=== PATIENT | male | born 1995 | race Caucasian/White ===

== ENCOUNTER 2019-11-29 10:16 | Outpatient (REF) | payer OTHER, MEDICAID, SELFPAY ==
[2019-11-29 11:52] LABS: Anion Gap 12 (12-20); Blood Urea Nitrogen 13 mg/dL (9-16); Carbon Dioxide 27 mmol/L (22-29); Chloride 105 mmol/L (96-108); Cholesterol 188 mg/dL; Estimated Glomerular Filt Rate > 60; Glucose Fasting 75 mg/dL (60-99); HDL Cholesterol 28 mg/dL; LDL Cholesterol Calculated 123 mg/dl; Potassium 4.2 mmol/l (3.3-5.1); Sodium 140 mmol/L (135-145); Triglycerides 186 mg/dL
[2019-11-29 12:16] LABS: TSH reflex Free T4 1.33 mIU/mL (0.32-4.0)
== END 2019-11-29 10:17 | disposition home or self-care (01) ==
LOC: HO.HMGCLDS 10:16
PROVIDERS: PCP Nurse Practitioner Family; Visit Provider Nurse Practitioner Family
DX: Z00.00 Encounter for general adult medical examination without abnormal findings (principal)
CPT/HCPCS: 80048; 80061; 84443

== ENCOUNTER 2020-02-26 13:57 | Outpatient (REF) | payer OTHER, MEDICAID, SELFPAY ==
--- NOTE | 2020-02-26 14:37 | MHC.AU.P13 ---
Adult Audiological Evaluation Date of Visit: 02/26/20 Reason for Appointment: Audiological evaluation per protocol of his residential program. His caregiver denies any concerns for his hearing and denies any changes to his medical history. Does patient feel they have a hearing loss?: No Has hearing been tested previously?: Yes Previous Hearing Test Results: [facility] [place]- could not condition to hearing test with tonal stimuli. Normal responses to speech stimuli. Normal OAEs and tympanometry bilaterally. Medical History: Medical History: Developmental Disorder/Delay Medical History: Autism Spectrum Disorder Otoscopy: Right Ear: Unremarkable Left Ear: Unremarkable Tympanometry: Right Ear: Hypercompliant Middle Ear System (Type Ad) Left Ear: Normal Middle Ear System (Type A) Otoacoustic Emissions Right Ear Results: Did not test due to equipment malfunction. Analysis: Not performed at today's visit Left Ear Results: Did not test due to equipment malfunction. Analysis: Not performed at today's visit Hearing Evaluation: Transducer(s) Used: Insert Earphones Method: Visual Reinforcement Audiometry (VRA) Stimuli Used: Pure Tones Right Ear: Description of Hearing: Normal hearing from 250-8000 Hz. Left Ear: Description of Hearing: Normal hearing from 250-8000 Hz. Speech Recognition Threshold (SRT): Method Used: Monitored Live Voice Stimuli Used: Spondee Words Right Ear: 15 dBHL Left Ear: 10 dBHL Comparison: Compared to the most recent evaluation: Hearing is stable. Recommendations: Recommendations: Audiological re-evaluation in one year. Diagnosis: Primary Diagnosis: H93.293 Abnormal Auditory Perception Services Performed: Services Performed: Visual Reinforcement Audiometry (CPT 64915) Speech Audiometry Threshold (SRT/SAT) (CPT 17146) Tympanometry (CPT 17311) Signature: Provider: Marie Andres, CCC-A
== END 2020-02-26 13:58 | disposition home or self-care (01) ==
LOC: HO.SH 13:57
PROVIDERS: Visit Provider Nurse Practitioner Family
DX: H93.293 Other abnormal auditory perceptions, bilateral (principal)
CPT/HCPCS: 92555; 92567; 92579

== ENCOUNTER 2021-02-03 09:04 | Outpatient (REF) | payer OTHER, MEDICAID, SELFPAY ==
[2021-02-03 12:15] LABS: Appearance Urine CLEAR; Color Urine YELLOW; Glucose Urine UA NEG (NEG); Leukocyte Esterase Urine NEG (NEG); Nitrite Urine NEG (NEG); Urine Blood NEG (NEG); Urine Ketones NEG (NEG); Urine Protein NEG (NEG-TRACE)
[2021-02-03 12:32] LABS: Alanine Aminotransferase 22 U/L (0-40); Albumin Level 4.3 g/dL (3.5-5.0); Alkaline Phosphatase 48 U/L (39-117); Anion Gap 11 (12-20); Aspartate Amino Transferase 17 U/L (5-37); Bilirubin Total 0.3 mg/dL (0.0-1.0); Blood Urea Nitrogen 9 mg/dL (9-16); Carbon Dioxide 25 mmol/L (22-29); Chloride 105 mmol/L (96-108); Cholesterol 163 mg/dL; Estimated Glomerular Filt Rate > 60; Glucose Fasting 83 mg/dL (60-99); HDL Cholesterol 27 mg/dL; LDL Cholesterol Calculated 106 mg/dl; Potassium 4.3 mmol/L (3.3-5.1); Sodium 137 mmol/L (135-145); TSH reflex Free T4 1.43 uIU/mL (0.32-4.0); Total Protein 6.9 g/dL (6.5-8.0); Triglycerides 151 mg/dL
== END 2021-02-03 09:05 | disposition home or self-care (01) ==
LOC: HO.HMGCLDS 09:04
PROVIDERS: PCP Nurse Practitioner Family; Visit Provider Nurse Practitioner Family
DX: Z00.00 Encounter for general adult medical examination without abnormal findings (principal)
CPT/HCPCS: 36415; 80053; 80061; 81003; 84443

== ENCOUNTER 2021-02-26 09:40 | Outpatient (REF) | payer OTHER, MEDICAID, SELFPAY ==
--- NOTE | 2021-02-26 11:15 | MHC.AU.AEV ---
Adult Audiological Evaluation Date of Visit: 02/26/21 Reason for Appointment: Patient arrives for annual audiological evaluation, per guidelines of his residential program. No hearing concerns have been suspected since last year's evaluation. Has hearing been tested previously?: Yes Previous Hearing Test Results: At this clinic on 02/26/2020- Normal hearing bilaterally. Type Ad tympanogram in the right ear and Type A in the left ear. Ear History: Ear Deformity: None Reported Recent Ear Drainage: None Reported Recent Ear Pain: None Reported Medical History: Medical History: Developmental Disorder/Delay, Autism Spectrum Disorder Otoscopy: Right Ear: Unremarkable Left Ear: Unremarkable Tympanometry: Tympanometry performed due to: To assess integrity of the middle ear system Right Ear: Hypercompliant Middle Ear System (Type Ad) Left Ear: Normal Middle Ear System (Type A) Otoacoustic Emissions Frequency Range Used: 1.6-8 kHz Right Ear Results: Present Emissions Analysis: Present emissions suggest normal cochlear function Rules out peripheral hearing loss greater than a mild degree Left Ear Results: Present Emissions Analysis: Present emissions suggest normal cochlear function Rules out peripheral hearing loss greater than a mild degree Hearing Evaluation: Transducer(s) Used: Insert Earphones Method: Visual Reinforcement Audiometry (VRA) Stimuli Used: Right Ear: Description of Hearing: Normal threshold at 1000 Hz. Patient lost interest in the task for further tonal testing. Left Ear: Description of Hearing: Normal threshold at 1000 Hz. Patient lost interest in the task for further tonal testing. Speech Recognition Threshold (SRT): Method Used: Monitored Live Voice Stimuli Used: Spondee Words Right Ear: 10 dBHL Left Ear: 10 dBHL Word Discrimination: Method: Recorded Lists Word Lists Used:: W-22 Right Ear: 100% at 50 dBHL Left Ear: 100% at 50 dBHL Comparison: Compared to the most recent evaluation: Hearing is stable. Interpretation of Results: No major concerns for patient's hearing at this time. Recommendations: Audiological re-evaluation in one year. Diagnosis: Primary Diagnosis: H93.293 Abnormal Auditory Perception Signature: Provider: Marie Holman, JALEN-A
== END 2021-02-26 09:41 | disposition home or self-care (01) ==
LOC: HO.SH 09:40
PROVIDERS: Visit Provider Nurse Practitioner Family
DX: H93.293 Other abnormal auditory perceptions, bilateral (principal)
CPT/HCPCS: 92567; 92579; 92587

== ENCOUNTER 2022-02-09 09:19 | Outpatient (REF) | payer OTHER, MEDICAID, SELFPAY ==
[2022-02-09 11:30] LABS: MANUAL DIFF FLAG NO
[2022-02-09 11:37] LABS: Basophils Absolute Auto 0.1 X10*3/uL (0.0-0.2); Basophils Percent Auto 0.9 % (0-2); Eosinophils Absolute Auto 0.1 X10*3/uL (0.0-0.4); Eosinophils Percent Auto 1.2 % (0-4); Hematocrit 41.7 % (42.0-52.0); Hemoglobin 14.1 g/dl (14.0-18.0); Imm Gran Abs Auto 0.04 X10*3/uL (0.00-0.03); Imm Gran Pct Auto 0.7 % (0.0-0.4); Lymphocytes Absolute Auto 1.7 X10*3/uL (1.2-4.9); Mean Corpuscular HGB Conc 33.8 g/dl (31.0-36.0); Mean Corpuscular Hemoglobin 29.7 pg (27.0-33.0); Mean Corpuscular Volume 87.8 fL (80.0-98.0); Mean Platelet Volume 10.5 fL (9.4-12.4); Monocytes Absolute Auto 0.6 X10*3/uL (0.1-1.2); Monocytes Percent Auto 11.1 % (2-11); Neutrophils Absolute Auto 3.2 x10*3/uL (2.0-8.3); Neutrophils Percent Auto 56.1 % (45-73); Platelet Count 197 X10*3/uL (160-400); Red Blood Count 4.75 X10*6/uL (4.60-5.80); Red Cell Distribution Width 11.8 % (11.0-16.0); White Blood Count 5.7 X10*3/uL (4.8-10.8)
[2022-02-09 11:49] LABS: Appearance Urine Clear; Color Urine Yellow; Glucose Urine UA Negative (Negative); Leukocyte Esterase Urine Negative (Negative); Nitrite Urine Negative (Negative); PH 5.5 (5.0-9.0); Urine Blood Negative (Negative); Urine Ketones Negative (Negative); Urine Protein Negative (Neg-Trace)
[2022-02-09 12:32] LABS: Alanine Aminotransferase 12 U/L (0-40); Albumin Level 4.3 g/dL (3.5-5.0); Alkaline Phosphatase 50 U/L (39-117); Anion Gap 13 (12-20); Aspartate Amino Transferase 13 U/L (5-37); Bilirubin Total 0.7 mg/dL (0.0-1.0); Blood Urea Nitrogen 9 mg/dL (9-16); Calcium 9.1 mg/dL (8.4-10.2); Carbon Dioxide 25 mmol/L (22-29); Chloride 108 mmol/L (96-108); Cholesterol 167 mg/dL; Estimated Glomerular Filt Rate > 60; Glucose Fasting 79 mg/dL (60-99); HDL Cholesterol 28 mg/dL; LDL Cholesterol Calculated 97 mg/dl; Potassium 4.5 mmol/L (3.3-5.1); Sodium 141 mmol/L (135-145); TSH reflex Free T4 1.75 uIU/mL (0.32-4.0); Total Protein 6.9 g/dL (6.5-8.0); Triglycerides 212 mg/dL
== END 2022-02-09 09:20 | disposition home or self-care (01) ==
LOC: HO.HMGCLDS 09:19
PROVIDERS: PCP Nurse Practitioner Family; Visit Provider Nurse Practitioner Family
DX: Z00.00 Encounter for general adult medical examination without abnormal findings (principal)
CPT/HCPCS: 36415; 80053; 80061; 81003; 84443; 85025

== ENCOUNTER 2022-03-24 10:00 | Outpatient (REF) | payer OTHER, MEDICAID, SELFPAY | END 2022-03-24 10:01 | disposition home or self-care (01) | LOC: HO.SH 10:00 | PROVIDERS: Visit Provider Nurse Practitioner Family | DX: Z01.118 Encounter for examination of ears and hearing with other abnormal findings (principal); H93.293 Other abnormal auditory perceptions, bilateral; F80.9 Developmental disorder of speech and language, unspecified | CPT/HCPCS: 92557; 92567 ==

== ENCOUNTER 2023-01-26 10:38 | Outpatient (AMB) | payer OTHER, MEDICAID, SELFPAY ==
--- NOTE | 2023-01-26 10:40 | A.OFFPC_ITS ---
Vital Signs 01/26/23 10:43 Height 5 ft 10 in Weight 234 lb BMI 33.6 BP 108/70 Blood Pressure Location Rt brachial Position Sitting Pulse 72 Pulse Source Pulse Oximeter Pulse Oximetry (%) 98 Oxygen Delivery Method Room Air Intake Visit Reasons: annual PE [employer]: Present Accompanied by: Unknown Allergies quetiapine [Seroquel] Allergy (Unknown, Verified 01/26/23 10:44) rash Sulfa (Sulfonamide Antibiotics) Allergy (Unknown, Verified 01/26/23 10:44) Unknown Benadryl Allergy (Unknown, Uncoded 01/26/23 10:44) unknown Tobacco use date assessed: 07/27/22 Dental Screening Dental Screen Date: 01/26/23 Did you have a dental visit in the last 12 months?: Yes Did you have a dental problem in the last 6 months where you did not have access to dental care?: No Was dental information given to patient?: Patient has dentist HPI annual PE HPI Details Pt is here for a PE. Will order labs. Pt has autism, is with a caregiver today. PFSH Medical History Obesity Poor nutrition Autism Surgical History H/O tooth extraction Family History Father No problems noted. Mother Migraine Social History Housing: Assisted Living Facility Alcohol intake: never Patient Tobacco Use Status: Never used Tobacco e-Cigarette/Vaping Use: Never Used Second Hand Smoke Exposure: No Current occupational status: disabled Cognitive needs: Yes Hearing needs: No Vision needs: No Questionnaire PHQ-9 Over the last 2 weeks, how often have you been bothered by any of the following problems? 1. Little interest or pleasure in doing things: not at all 2. Feeling down, depressed, or hopeless: not at all 3. Trouble falling or staying asleep, or sleeping too much: not at all 4. Feeling tired or having little energy: not at all 5. Poor appetite or overeating: not at all 6. Feeling bad about yourself - or that you are a failure or have let yourself or your family down: not at all 7. Trouble concentrating on things, such as reading the newspaper or watching television: several days 8. Moving or speaking so slowly that other people could have noticed. Or the opposite - being so fidgety or restless that you have been moving around a lot more than usual: several days 9. Thoughts that you would be better off or of hurting yourself in some way: not at all Total score: 2 Depression Screening Interpretation: Negative Depression Screening Done: Yes Source: Developed by Drs. Giovanni Rubio, Karen Chery, Stew Thorne and colleagues, with an educational susan from [employer]. Thrive Questionnaire Date Thrive assessed: 01/26/23 I am a: Parent/Caregiver What is your living situation today?: I have a steady place to live Within the past 12 months, did the food you bought not last and you didn't have the money to get more?: Never true Within the past 12 months, did you worry whether your food would run out before you got money to buy more?: Never true Do you have trouble paying for medicines?: No Do you have trouble getting transportation to medical appointments?: No Do you have trouble paying your heating and electricity bill?: No Do you have trouble taking care of your child, family member or friend?: No Do you have trouble with day-to-day activities such as bathing, preparing meals, shopping, managing finances, etc.?: No Are you currently unemployed and looking for a job?: No Are you interested in more education?: No AUDIT C Alcohol Use Questionnaire (AUDIT-C) 1. How often do you have a drink containing alcohol?: Never 3. How often do you have six or more drinks on one occasion?: Never Total Score: 0 Score Reviewed/Action Taken: No BRAXTON-7 AMB Questionnaire BRAXTON-7 Date BRAXTON - 7 assessed: 01/26/23 Feeling nervous, anxious, or on edge: 1 = Several days Not being able to stop or control worryin = Not at all Worrying too much about different things: 0 = Not at all Trouble relaxin = Not at all Being so restless that it is hard to sit still: 0 = Not at all Becoming easily annoyed or irritable: 0 = Not at all Feeling afraid as if something awful might happen: 0 = Not at all Total BRAXTON-7 score (0-4 normal; 5-9 mild; 10-14 moderate; 15-21 severe): 1 Source: Developed by Drs. Giovanni Rubio, Karen Chery, Stew Thorne and colleagues, with an educational susan from [employer]. BRAXTON-7 Assessment Billing BRAXTON-7 Assessment Tool: BRAXTON-7 Assessment 54376 Review of Systems Const Denies chills and Denies fever(s) Eyes Denies blurry vision ENT Denies vertigo, Denies dizziness and Denies sore throat Card Denies chest pain at rest, Denies chest pain with activity, Denies diaphoresis, Denies dyspnea and Denies dyspnea on exertion Resp Denies cough, Denies dyspnea, Denies dyspnea on exertion and Denies wheezing GI Denies abdominal pain, Denies melena, Denies hematochezia, Denies constipation, Denies diarrhea and Denies loose stools Denies hematuria Musc Denies numbness and Denies tingling Skin/Breast Denies lesions Neuro Denies vertigo, Denies dizziness, Denies numbness and Denies tingling Psych Denies anxiety, Denies depression, Denies homicidal ideation, Denies suicidal ideation and Denies other (substance abuse) Aller/Immun Denies wheezing Physical exam (Primary Care) Vital Signs: Last Vital Signs Pulse 72 01/26/23 10:43 BP 108/70 01/26/23 10:43 Pulse Ox 98 01/26/23 10:43 Oxygen Delivery Method Room Air 01/26/23 10:43 BMI result Body Mass Index 33.6 Tobacco/Smoking Status: Tobacco use Status Tobacco use date assessed 07/27/22 01/26/23 10:41 Patient Tobacco Use Status Never used Tobacco 01/26/23 10:41 e-Cigarette/Vaping Use Never Used 01/26/23 10:41 Depression Screening Interpretation: Negative Thrive Assessment: Date of Thrive Assessment Date Thrive assessed 01/22/22 01/26/23 10:41 Const General: cooperative Nutritional Appearance: obese Orientation/consciousness: patient oriented x3 HENMT Head: Yes normal to inspection, Yes normocephalic and Yes atraumatic Ears: TM's normal bilaterally Eyes General: appearance normal, both eyes and all related structures Alignment and Position: alignment normal and position normal Neck Neck: Yes normal visual inspection and Yes no lymphadenopathy Thyroid: Thyroid normal Resp Effort & Inspection: normal respiratory effort Auscultation: clear to auscultation bilaterally Cardio Rate: regular rate Rhythm: regular rhythm Heart sounds: S1 normal heart sound present, S2 normal heart sound present and no murmurs GI Palpation (GI): Soft to palpation and nontender Auscultation: normal bowel sounds Male General Exam: Yes normal external exam Penis: normal penis Scrotum: scrotum normal, testes descended bilaterally and no inguinal hernias Testes: no testicular mass Skin Rashes: no rashes Neuro General: patient oriented x3, moves all extremities, no focal motor deficits and deep tendon reflexes 2+ bilaterally Romberg Test: Negative Psych Appearance: grossly normal Mental Status: mental status grossly normal Speech and movement: Normal speech and movement present Affect: normal affect Attitude: cooperative Thought process: Normal thought process present Thought content: Normal thought content present Insight: Good insight present (Psych) Judgement: Good judgement present (Psych) Assessment and Plan Assessment & Plan (1) Physical exam: Code(s): Z00.00 - Encounter for general adult medical examination without abnormal findings Plan: Labs ordered (2) Autism: Code(s): F84.0 - Autistic disorder Plan: Pt with caregiver today Plan The patient agreed to the use of a biomedical engineering supervisor for this encounter. Scribed for NOEL Leon by Latia Esteves biomedical engineering supervisor, on 01/26/2023 at 11:00 EST. Orders: Orders TSH reflex Free T4 Today Z00.00 - Encounter for general adult medical e xamination without abnormal findings UA CC w/rflx Micro + Cult Today Z00.00 - Encounter for general adult medical examination without abnormal findings Lipid Panel Today Z00.00 - Encounter for general adult medical examination without abnormal findings Complete Blood Count Auto Diff Today Z00.00 - Encounter for general adult medical examination without abnormal findings Comprehensive [place]. Panel Fast Today Z00.00 - Encounter for general adult medical examination without abnormal findings Coding Level of Care Code Est Pt Prev Care 18-39y(76582) Diagnoses Physical exam Z00.00 Autism F84.0 Additional Codes BRAXTON-7 Assessment Billing - BRAXTON-7 Assessment Tool: BRAXTON-7 Assessment 38644 ([id number])
[2023-01-26 10:43] VITALS: BP 108/70; PULSE 72; O2SAT 98; BMI 33.6
== END 2023-01-26 11:13 | disposition home or self-care (01) ==
PROVIDERS: Visit Provider Nurse Practitioner Family
DX: Z00.00 Encounter for general adult medical examination without abnormal findings (principal); F84.0 Autistic disorder
CPT/HCPCS: 99395

== ENCOUNTER 2023-02-08 08:11 | Outpatient (REF) | payer OTHER, MEDICAID, SELFPAY ==
[2023-02-08 11:35] LABS: MANUAL DIFF FLAG NO
[2023-02-08 11:39] LABS: Basophils Absolute Auto 0.1 X10*3/uL (0.0-0.2); Basophils Percent Auto 1.4 % (0-2); Eosinophils Absolute Auto 0.2 X10*3/uL (0.0-0.4); Eosinophils Percent Auto 2.6 % (0-4); Hematocrit 42.4 % (42.0-52.0); Hemoglobin 14.7 g/dl (14.0-18.0); Imm Gran Abs Auto 0.05 X10*3/uL (0.00-0.03); Imm Gran Pct Auto 0.9 % (0.0-0.4); Lymphocytes Absolute Auto 1.9 X10*3/uL (1.2-4.9); Lymphocytes Percent Auto 33.7 % (20-40); Mean Corpuscular HGB Conc 34.7 g/dl (31.0-36.0); Mean Corpuscular Hemoglobin 30.5 pg (27.0-33.0); Mean Platelet Volume 10.4 fL (9.4-12.4); Monocytes Absolute Auto 0.6 X10*3/uL (0.1-1.2); Monocytes Percent Auto 10.1 % (2-11); Neutrophils Absolute Auto 2.9 x10*3/uL (2.0-8.3); Neutrophils Percent Auto 51.3 % (45-73); Platelet Count 219 X10*3/uL (160-400); Red Blood Count 4.82 X10*6/uL (4.60-5.80); Red Cell Distribution Width 12.1 % (11.0-16.0); White Blood Count 5.7 X10*3/uL (4.8-10.8)
[2023-02-08 12:25] LABS: Alanine Aminotransferase 19 U/L (0-40); Albumin Level 4.4 g/dL (3.5-5.0); Alkaline Phosphatase 44 U/L (39-117); Anion Gap 14 (12-20); Aspartate Amino Transferase 21 U/L (5-37); Bilirubin Total 0.5 mg/dL (0.0-1.0); Blood Urea Nitrogen 10 mg/dL (9-16); Calcium 9.3 mg/dL (8.4-10.2); Carbon Dioxide 25 mmol/L (22-29); Chloride 105 mmol/L (96-108); Cholesterol 186 mg/dL (<200); Estimated Glomerular Filt Rate > 60; Glucose Fasting 81 mg/dL (60-99); HDL Cholesterol 32 mg/dL (>40); LDL Cholesterol Calculated 112 mg/dL (<100); Potassium 4.1 mmol/L (3.3-5.1); Sodium 140 mmol/L (135-145); Total Protein 7.5 g/dL (6.5-8.0); Triglycerides 213 mg/dL (<150)
[2023-02-08 12:44] LABS: TSH reflex Free T4 2.96 uIU/mL (0.32-4.0)
== END 2023-02-08 08:12 | disposition home or self-care (01) ==
LOC: HO.HMGCLDS 08:11
PROVIDERS: PCP Nurse Practitioner Family; Visit Provider Nurse Practitioner Family
DX: Z00.00 Encounter for general adult medical examination without abnormal findings (principal)
CPT/HCPCS: 36415; 80053; 80061; 84443; 85025

== ENCOUNTER 2023-02-11 16:00 | Outpatient (REF) | payer OTHER, MEDICAID, SELFPAY ==
[2023-02-12 13:38] LABS: Appearance Urine Clear; Color Urine Yellow; Glucose Urine UA Negative (Negative); Leukocyte Esterase Urine Negative (Negative); Nitrite Urine Negative (Negative); PH 6.5 (5.0-9.0); Specific Gravity - Urine 1.025 (1.005-1.025); Urine Blood Negative (Negative); Urine Ketones Trace mg/dL (Negative); Urine Protein Negative (Neg-Trace)
== END 2023-02-11 16:01 | disposition home or self-care (01) ==
LOC: HO.HMGCLNP 16:00
PROVIDERS: PCP Nurse Practitioner Family; Visit Provider Nurse Practitioner Family
DX: Z00.00 Encounter for general adult medical examination without abnormal findings (principal)
CPT/HCPCS: 81003

== ENCOUNTER 2023-05-14 09:13 | Outpatient (REF) | payer OTHER, MEDICAID, SELFPAY | END 2023-05-14 09:14 | disposition home or self-care (01) | LOC: HO.SH 09:13 | PROVIDERS: PCP Nurse Practitioner Family; Visit Provider Nurse Practitioner Family | DX: H93.293 Other abnormal auditory perceptions, bilateral (principal) | CPT/HCPCS: 92552; 92556 ==

== ENCOUNTER 2023-07-28 10:40 | Outpatient (AMB) | payer OTHER, MEDICAID, SELFPAY ==
--- NOTE | 2023-07-28 10:47 | AM.OFFWIN_ITS ---
Intake Vital Signs 07/28/23 10:50 Height 5 ft 10 in BP 112/74 Blood Pressure Location Rt brachial Position Sitting Pulse 78 Pulse Source Pulse Oximeter Temp 98.1 F Temp Source Oral Pulse Oximetry (%) 98 Intake Visit Reasons: EP Bug bites, wound concerns Intake Note: pt is here for left arm roung bruise like wound, patient went camping patient suspects it could be a tick bite Patient Tobacco Use Status: Never used Tobacco Allergies quetiapine [Seroquel] Allergy (Unknown, Verified 07/28/23 10:51) rash Sulfa (Sulfonamide Antibiotics) Allergy (Unknown, Verified 07/28/23 10:51) Unknown Benadryl Allergy (Unknown, Uncoded 01/26/23 10:44) unknown Do you need a note to return to daycare/school/sports/work: Yes HPI HPI Comments History of Present Illness Details Patient is a 28-year-old male who is here with his worker from his half-way complaining of a bruise on his left arm and bug bites on his bilateral lower extremities since July 18 when he went camping with his mother. They have been applying betamethasone cream on the bug bites but the patient is scratching them so they are not resolving. He denies fevers. They are also concerned about a bruise on his left arm and wanted to make sure it was not a rash from a tick bite. [facility] Medical History Obesity Poor nutrition Autism Surgical History H/O tooth extraction Family History Father No problems noted. Mother Migraine Social History Housing: Assisted Living Facility Alcohol intake: never Patient Tobacco Use Status: Never used Tobacco e-Cigarette/Vaping Use: Never Used Second Hand Smoke Exposure: No Current occupational status: disabled Cognitive needs: Yes Hearing needs: No Vision needs: No Review of Systems Const All systems reviewed & are unremarkable except as noted in HPI and below Physical Exam Vital Signs: Last Vital Signs Temp 98.1 F 07/28/23 10:50 Pulse 78 07/28/23 10:50 BP 112/74 07/28/23 10:50 Pulse Ox 98 07/28/23 10:50 Const General: cooperative, healthy appearing, comfortable, no acute distress and well developed HEENT Head: Yes normal to inspection Eyes General: appearance normal, both eyes and all related structures Neck Neck: Yes normal visual inspection and Yes full ROM Resp Effort & Inspection: normal respiratory effort and able to speak in complete sentences Skin Other: Left mid forearm, circular light brown area of ecchymosis, no signs of infection noted, no erythema or warmth. Bilateral lower extremities, patient has multiple small round areas of excoriation, no erythema, no warmth, no drainage or other concerning signs of infection Assessment & Plan Assessment & Plan (1) Bug bite without infection: Code(s): W57.XXXA - Bitten or stung by nonvenomous insect and other nonvenomous arthropods, initial encounter Qualifiers: Encounter type: initial encounter Qualified Code(s): W57.XXXA - Bitten or stung by nonvenomous insect and other nonvenomous arthropods, initial encounter Plan: Advised to use Aquaphor ointment on areas twice daily, filled out paperwork from half-way reflecting this and advised to follow up with primary care doctor if wounds do not resolve in the next 2 weeks with treatment. Advised to stop using the betamethasone cream as it does not seem to be working for him. (2) Traumatic ecchymosis of left forearm: Code(s): S50.12XA - Contusion of left forearm, initial encounter Qualifiers: Encounter type: initial encounter Qualified Code(s): S50.12XA - Contusion of left forearm, initial encounter Plan: Advised patient that should heal wel on it's own over the next weekl, it does not look like erythema migrans at all. Plan see above Coding Level of Care Code Est Pt Level 2 (20274) Diagnoses Bug bite without infection, initial encounter W57.XXXA Encounter type: initial encounter Traumatic ecchymosis of left forearm, initial encounter S50.12XA Encounter type: initial encounter
[2023-07-28 10:50] VITALS: BP 112/74; PULSE 78; TEMP 36.7; O2SAT 98
== END 2023-07-28 11:21 | disposition home or self-care (01) ==
PROVIDERS: PCP Nurse Practitioner Family; Visit Provider Physician Assistant
DX: S50.12XA Contusion of left forearm, initial encounter (principal); S80.861A Insect bite (nonvenomous), right lower leg, initial encounter; S80.862A Insect bite (nonvenomous), left lower leg, initial encounter; W57.XXXA Bitten or stung by nonvenomous insect and other nonvenomous arthropods, initial encounter
CPT/HCPCS: 99212

== ENCOUNTER 2024-02-10 10:48 | Outpatient (AMB) | payer OTHER, MEDICAID, SELFPAY ==
[2024-02-10 10:49] VITALS: BP 118/74; PULSE 90; O2SAT 97; BMI 34.1
--- NOTE | 2024-02-10 10:49 | A.OFFPC_ITS ---
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 Required: No Accompanied by: Self / Same As Patient Allergies quetiapine [Seroquel] Allergy (Unknown, Verified 02/10/24 10:50) rash Sulfa (Sulfonamide Antibiotics) Allergy (Unknown, Verified 02/10/24 10:50) Unknown Benadryl Allergy (Unknown, Uncoded 01/26/23 10:44) unknown Medication List - Last Reconciled 02/10/24 by NOEL Darnell acetaminophen ER (Tylenol 8 Hour) 650 mg PO Q8H 30 days betamethasone dipropionate 0.05% 1 appl topical BID clonidine HCl 0.2 mg PO BID divalproex 250 mg PO DAILY escitalopram oxalate 20 mg PO DAILY hydroxyzine HCl 50 mg PO TID PRN lorazepam 0.5 mg PO BID multivitamin 1 tab PO DAILY 90 days risperidone 3 mg PO .morning risperidone 2 mg PO BEDTIME risperidone 0.5 mg PO DAILY Tobacco use date assessed: 02/10/24 Dental Screening Dental Screen Date: 02/10/24 Did you have a dental visit in the last 12 months?: Yes Did you have a dental problem in the last 6 months where you did not have access to dental care?: No Was dental information given to patient?: Patient has dentist HPI HPI Comments History of Present Illness Details Pt is here for a PE. Autistic, here with staff worker [facility] Medical History Obesity Poor nutrition Autism Surgical History H/O tooth extraction Family History Father No problems noted. Mother Migraine Social History Housing: Assisted Living Facility Alcohol intake: never Patient Tobacco Use Status: Never used Tobacco e-Cigarette/Vaping Use: Never Used Second Hand Smoke Exposure: No Current occupational status: disabled Cognitive needs: Yes Hearing needs: No Vision needs: No Questionnaire PHQ-9 Over the last 2 weeks, how often have you been bothered by any of the following problems? 1. Little interest or pleasure in doing things: not at all 2. Feeling down, depressed, or hopeless: not at all 3. Trouble falling or staying asleep, or sleeping too much: not at all 4. Feeling tired or having little energy: not at all 5. Poor appetite or overeating: not at all 6. Feeling bad about yourself - or that you are a failure or have let yourself or your family down: not at all 7. Trouble concentrating on things, such as reading the newspaper or watching television: not at all 8. Moving or speaking so slowly that other people could have noticed. Or the opposite - being so fidgety or restless that you have been moving around a lot more than usual: not at all 9. Thoughts that you would be better off or of hurting yourself in some way: not at all Total score: 0 Depression Screening Interpretation: Negative Depression Screening Done: Yes 84859 - PHQ-9 Billing: Yes Source: Developed by Drs. Giovanni Rubio, Karen Chery, Stew Thorne and colleagues, with an educational susan from [employer]. Thrive Questionnaire Date Thrive assessed: 02/10/24 I am a: Parent/Caregiver What is your living situation today?: I have a steady place to live Within the past 12 months, did the food you bought not last and you didn't have the money to get more?: I choose not to answer this question Within the past 12 months, did you worry whether your food would run out before you got money to buy more?: I choose not to answer this question Do you have trouble paying for medicines?: No Do you have trouble getting transportation to medical appointments?: No Do you have trouble paying your heating and electricity bill?: No Do you have trouble taking care of your child, family member or friend?: No Do you have trouble with day-to-day activities such as bathing, preparing meals, shopping, managing finances, etc.?: No Are you currently unemployed and looking for a job?: No Are you interested in more education?: No Please select the resources that you would like help with: None Currently or been in a relationship where the following occur: I choose not to answer THRIVE Score: 0 AUDIT C Alcohol Use Questionnaire (AUDIT-C) 1. How often do you have a drink containing alcohol?: Never 3. How often do you have six or more drinks on one occasion?: Never Total Score: 0 Score Reviewed/Action Taken: Yes BRAXTON-7 AMB Questionnaire BRAXTON-7 Date BRAXTON - 7 assessed: 02/10/24 Feeling nervous, anxious, or on edge: 0 = Not at all Not being able to stop or control worryin = Not at all Worrying too much about different things: 0 = Not at all Trouble relaxin = Not at all Being so restless that it is hard to sit still: 0 = Not at all Becoming easily annoyed or irritable: 0 = Not at all Feeling afraid as if something awful might happen: 0 = Not at all Total BRAXTON-7 score (0-4 normal; 5-9 mild; 10-14 moderate; 15-21 severe): 0 Source: Developed by Drs. Giovanni Rubio, Karen Chery, Stew Thorne and colleagues, with an educational susan from [employer]. BRAXTON-7 Assessment Billing BRAXTON-7 Assessment Tool: BRAXTON-7 Assessment 60676 Review of Systems Const Denies chills and Denies fever(s) Eyes Denies blurry vision ENT Denies vertigo, Denies dizziness and Denies sore throat Card Denies chest pain at rest, Denies chest pain with activity, Denies diaphoresis, Denies dyspnea and Denies dyspnea on exertion Resp Denies cough, Denies dyspnea, Denies dyspnea on exertion and Denies wheezing GI Denies abdominal pain, Denies melena, Denies hematochezia, Denies constipation, Denies diarrhea and Denies loose stools Denies hematuria Musc Denies numbness and Denies tingling Skin/Breast Denies lesions Neuro Denies vertigo, Denies dizziness, Denies numbness and Denies tingling Psych Denies anxiety, Denies depression, Denies homicidal ideation, Denies suicidal ideation and Denies other (substance abuse) Aller/Immun Denies wheezing Physical exam (Primary Care) Vital Signs: Last Vital Signs Pulse 90 02/10/24 10:49 BP 118/74 02/10/24 10:49 Pulse Ox 97 02/10/24 10:49 BMI result Body Mass Index 34.1 Tobacco/Smoking Status: Tobacco use Status Tobacco use date assessed 02/10/24 02/10/24 10:51 Patient Tobacco Use Status Never used Tobacco 02/10/24 10:51 e-Cigarette/Vaping Use Never Used 02/10/24 10:51 PHQ-9: PHQ-9 Score PHQ-9: Total score 2 02/10/24 10:51 Depression Screening Interpretation: Negative Thrive Assessment: Date of Thrive Assessment Date Thrive assessed 02/10/24 02/10/24 10:51 Currently or been in a relationship where the following occur: I choose not to answer Const General: cooperative, healthy appearing and comfortable Nutritional Appearance: well nourished Orientation/consciousness: patient oriented x3 (autistic) HENMT Head: Yes normal to inspection, Yes normocephalic and Yes atraumatic Ears: TM normal on the right and TM normal on the left Eyes General: appearance normal, both eyes and all related structures Alignment and Position: alignment normal and position normal Neck Neck: Yes normal visual inspection, Yes no lymphadenopathy and Yes supple Resp Effort & Inspection: normal respiratory effort Auscultation: clear to auscultation bilaterally Cardio Rate: regular rate Rhythm: regular rhythm Heart sounds: S1 normal heart sound present, S2 normal heart sound present and no murmurs GI Palpation (GI): Soft to palpation and nontender Auscultation: normal bowel sounds Male General Exam: Yes normal external exam Penis: normal penis Scrotum: scrotum normal, testes descended bilaterally and no inguinal hernias Testes: no testicular mass Skin Other: bilat hands, mostly dorsal aspect, with healing skin abrasions (pt is a tongue and quarter stitcher). no signs of infection Rashes: no rashes Neuro General: patient oriented x3 (autistic), moves all extremities, no focal motor deficits and deep tendon reflexes 2+ bilaterally Romberg Test: Negative Extrem Right lower extremity: no edema Left lower extremity: no edema Psych Other: autistic Affect: normal affect Attitude: cooperative Coding Level of Care Code Est Pt Prev Care 18-39y(76576) Diagnoses Physical exam Z00.00 Additional Codes BRAXTON-7 Assessment Billing - BRAXTON-7 Assessment Tool: BRAXTON-7 Assessment 68467 ([id number]) PHQ-9 - 61463 - PHQ-9 Billing: Yes ([id number]) Assessment & Plan Assessment & Plan (1) Physical exam: Code(s): Z00.00 - Encounter for general adult medical examination without abnormal findings Category: Medical Plan labs ordered Orders: Orders Complete Blood Count Auto Diff Today Z00.00 - Encounter for general adult medical examination without abnormal findings Comprehensive [place]. Panel Fast Today Z00.00 - Encounter for general adult medical examination without abnormal findings TSH reflex Free T4 Today Z00.00 - Encounter for general adult medical examination without abnormal findings UA CC w/rflx Micro + Cult Today Z00.00 - Encounter for general adult medical examination without abnormal findings
== END 2024-02-10 13:04 | disposition home or self-care (01) ==
PROVIDERS: PCP Nurse Practitioner Family; Visit Provider Nurse Practitioner Family
DX: Z00.00 Encounter for general adult medical examination without abnormal findings (principal)

== ENCOUNTER → 2024-02-10 10:48 | Outpatient (BNVA) | payer OTHER, MEDICAID, SELFPAY | PROVIDERS: PCP Nurse Practitioner Family; Visit Provider Nurse Practitioner Family | DX: Z00.00 Encounter for general adult medical examination without abnormal findings (principal); F84.0 Autistic disorder | CPT/HCPCS: 96127 ==

== ENCOUNTER 2024-02-25 14:00 | Outpatient (RCR) | payer OTHER, MEDICAID, SELFPAY | END 2024-03-24 11:33 | disposition home or self-care (01) | LOC: HO.PTCHIC 14:00 | PROVIDERS: PCP Nurse Practitioner Family; Visit Provider Orthopaedic Surgery | DX: S93.402A Sprain of unspecified ligament of left ankle, initial encounter (principal) | CPT/HCPCS: 97110; 97162 ==

== ENCOUNTER 2024-04-08 08:28 | Outpatient (REF) | payer OTHER, MEDICAID, SELFPAY ==
--- OUTSIDE RECORDS SUMMARY | 2024-04-08 08:30 | XMS_ITS | Data Portability ---
Author Organization [place] [facility] Address [address] [place] [id number] Care Team Providers Care Bariatric Surgeon Name Role Phone BERNY SARMIENTO Primary Care Provider Assessment Encounter Date Assessment Date Assessment LastModified by Organization Details LastModified Time 04/17/2019 04/17/2019 Overview/History :T is a 24-year-old male that is new to [facility] and this provider. He has a history of behavioral disturbance and autism. [facility] was contacted for concerns of irritation of his right eye. This apparently had improved/resolved by this morning. No treatments were started at home for his irritated eye. There were no reports of fevers or drainage. Exam: On exam patient is awake and alert , Hemodynamically stable and afebrile. Lung sounds clear to auscultation, heart rate regular. No drainage from either eye. Sclera is clear. No lymphadenopathy, no erythema to the oropharynx. No face pressure. No DDx considered, but not limited to:There does not seem to be any acute process. Did consider conjunctivitis though would expect the drainage. Consider seasonal allergies however no nasal discharge and no sneezing or coughing. Considered foreign body however no evidence of irritation. Work up/Results: Plan/Discussion:Ey e irritation seems to have resolved, exam is grossly benign. He was given a prescription for artificial tears to use on an as needed basis if he were to get the irritation again. If he were to develop fevers, or drainage from the eye would need to be reevaluated by PCP. Also discussed the possibility of seasonal allergies with long term staff, though he has no history of allergies in the past. longterm staff verbalized understanding of discharge instructions and what conditions they should contact his PCP for. [email or web address] Not available 04/17/2019 16:42:47 08/14/2019 08/14/2019 Overview/History :[age]-year-old male with medical history significant for autism and behavioral disturbances. [facility] was contacted to evaluate him as he was found to have a wound on his left lower extremity. Staff at the long term did not know exactly when this occurred or how it occurred but noted that yesterday. They have been keeping the area clean and applying topical antibiotic and a Band-Aid. [facility] and ensure that he did not need further antibiotics. Exam: On exam patient is awake and alert, he is cooperative. Afebrile and hemodynamically stable. Respirations easy, target regular. He was noted to have a small abrasion to his left espino, there was some surrounding erythema and a small amount of slough in the wound bed. This was not painful and there was no warmth to the area. DDx considered, but not limited to:Wound on leg is likely due to minor trauma. It does appear to be mildly infected, there are no signs of systemic infection. Wound is fairly superficial so no concern for osteomyelitis at this time. He was able to be stable so no concern for sepsis. Work up/Results:Physica l exam in wound care provided. Plan/Discussion:I discussed with long term staff that the wound appears to be mildly infected but I think it is appropriate to continue with topical antibiotics. I have given him a prescription for mupirocin to cover for MRSA. I instructed them to clean the area twice a day and to apply mupirocin ointment and a nonadhesive bandage. We reviewed signs of worsening infection, if this occurs they should contact [facility] for reevaluation. In order to obtain further information and compare any laboratory results/values, I have accessed old patient records. This information was pertinent in my medical decision making today. [email or web address] Not available 08/14/2019 21:32:01 Plan of Treatment Reminders Order Date Submit Date Provider Last Modified By Organization Details Last Modified Time Details Appointments None recorded. Lab None recorded. Referral None recorded. Procedures None recorded. Surgeries None recorded. Imaging None recorded. Medication Orders mupirocin 2 % topical ointment 2019 020 [email or web address] [facility]), [address] [place] [address], [address], [place], [phone], 0 15:32:46 Artificial Tears (glycerin- peg) 1 %-0.3 % eye drops 2019 020 INTERFACE [id number], [address] [place], [address], 0 16:23:31 Patient TargetsNo targets recorded. Patient Instructions Encounter Date Encounter Id Patient Instructions Last Modified By Organization Details Last Modified Time 04/17/2019 [id number] WE CAME OUT TODA Y TO EVALUATE JOHN FOR RED EYE. ON EXAM TODAY THIS SEEMS TO HAVE RESOLVED. THIS WAS LIKELY DUE TO AN IRRITANT THAT HAS ALREADY CLEARED. I HAVE PRESCRIBED SOME ARTIFICIAL TEARS THAT CAN BE USED ON AN NEEDED BASIS. IF HIS EYES ARE TO BECOME IRRITATED AGAIN OR IF HE BEGINS TO HAVE DISCHARGE FROM THE EYES THAT MAY MEAN THAT HE HAS AN INFECTION AND HE WOULD NEED TO BE RE-EVALUATED AT THAT TIME. [facility]. We cannot always find the exact cause of your symptoms during your initial visit. Please follow up with your primary care provider or specialist as needed to be rechecked or seek medical attention if your symptoms do not go away or get worse. If you develop any new or worsening symptoms and need after hours care, please go to nearest ER and/or call 911. If you have additional concerns or develop a change in your condition between 8am-10pm, please call [facility] at [phone] to help navigate your care. [email or web address] Not available 04/17/2019 16:19:14 Reason for Referral None Reported. Medical Equipment None Reported. Medications Name Sig Start Date Stop Date Status Note LastModified by Organization Details LastModified Time acetaminophe n 325 mg tablet TAKE 2 TABLETS BY MOUTH EVERY 4 HOURS NEEDED FOR HEADACHE active Not Available Not Available No t Available clindamycin HCl 300 mg capsule TAKE ONE CAPSULE BY MOUTH EVERY 6 HOURS UNTIL FINISHED active Not Available Not Available No t Available betamethason e, augmented 0.05 % topical cream APPLY 1 APPLICATION TOPICALLY TWICE DAILY active Not Available Not Available Not Available hydroxyzine HCl 50 mg tablet TAKE 2 TABLETS BY MOUTH EVERY 6 HOURS NEEDED FOR ANXIETY/ANG ER. MAX 3 DOSES/24 HOURS active Not Available Not Available No t Available divalproex 500 mg tablet,delay ed release TAKE 1 TABLET BY MOUTH TWICE A DAY active Not Available Not Available No t Available risperidone 2 mg tablet TAKE 1 TABLET BY MOUTH TWICE A DAY active Not Available Not Available No t Available oxycodone-ac etaminophen 5 mg-325 mg tablet TAKE 1 TAB BY MOUTH EVERY 4HRS NEEDED FOR PAIN DO NOT OPERATE HEAVY MACHINERY UNDER THE INFLUENCE active Not Available Not Available No t Available lorazepam 0.5 mg tablet TAKE 1/2 TABLET BY MOUTH TWICE A DAY active Not Available Not Available No t Available betamethason e dipropionate 0.05 % topical cream active Not Available Not Available Not Available mupirocin 2 % topical ointment APPLY A SMALL AMOUNT TO THE AFFECTED AREA BY TOPICAL ROUTE 2 TIMES PER DAY active Not Available Not Available No t Available ibuprofen 600 mg tablet TAKE 1 TABLET BY MOUTH EVERY 6 HOURS NEEDED FOR PAIN active Not Available Not Available No t Available risperidone 0.5 mg tablet TAKE 1 TABLET BY MOUTH EVERY DAY AT 2 PM active Not Available Not Available Not Available escitalopram 20 mg tablet TAKE 1 TABLET BY MOUTH EVERY DAY active Not Available Not Available No t Available chlorhexidin e gluconate 0.12 % mouthwash TAKE 1 CAP BY MOUTH SWISH HOLD FOR 2MINUTES THEN SPIT 3 TIMES A DAY AFTER MEALS active Not Available Not Available Not Available Artificial Tears (glycerin-pe g) 1 %-0.3 % eye drops Apply 1 drop as needed by ophthalmic route. active Not Available Not Available No t Available Vitals Date Recorded Oxygen saturation Oxygen saturation in Arterial blood by Pulse oximetry Respiratory rate Heart rate Body temperature Systolic blood pressure Diastolic blood pressure Provider Name and Address Organization Details Last Updated DateTime 0 98 % 98 % 18 /min 68 /min 98.7 [degF] 122 mm[Hg] 70 mm[Hg] Not Available [facility] 0 16:20:26 Date Recorded Heart rate Oxygen saturation Oxygen saturation in Arterial blood by Pulse oximetry Body temperature Respiratory rate Systolic blood pressure Diastolic blood pressure Provider Name and Address Organization Details Last Updated DateTime 0 90 /min 98 % 98 % 97 [degF] 20 /min 138 mm[Hg] 64 mm[Hg] Not Available [facility] 0 19:46:22 Social History None recorded. Functional Status None recorded. Mental Status None recorded. Family History Nothing Reported Notes:pt is unaware of his f amily hx Medical History Condition Response Diabetes N Coronary Artery Disease N Cancer N Stroke N Depression N COPD N Asthma N High Cholesterol N Pulmonary Embolism N Hypertension N Kidney Disease N Past Encounters Encounter ID Performer Location Encounter Start Date Encounter Closed Date Diagnosis/Indication Diagnosis SNOMED-CT Code Diagnosis ICD10 Code Diagnosis Note [id number] ISIDORO LOZANO NP [facility] [address] [place] [address] 04/17/2019 16:05:17 04/18/2019 10:31:47 Sensation of irritation of eye proper [id number] H57.89 [id number] ISIDORO LOZANO NP [facility] [address] [place] [address] 08/14/2019 19:43:39 08/15/2019 18:51:47 Open wound of lower leg [id number] S81.802A Health Concerns Section Related Observation LastModified by Organization Detai ls LastModified Time None Recorded Concern Status LastModified by Organization Details LastModified Time None Recorded Advance Directives Directive None Recorded Payers Encounter Date Sequence Insurance Name Policy Number Policy Vidal Covered Member ID Vidal Member ID Guarantor Name 04/17/2019 2 [place] [facility] [id number] [facility] 08/14/2019 2 [place] [facility] [id number] [facility] Notes Date Note Type Note Provider Name and Address Organization Details Recorded Time 04/17/2019 text/html Adrian is a 24-year-old male that is new to [facility] provider. He lives in a long term and has a history of autism and behavioral disturbance. longterm staff contact [facility] because he came home from an outing with her father last night and had redness and irritation to his right eye. They report this looked improved this morning. When I speaking to John he told me that he felt that he will be all better now. longterm staff denied fevers, chills or any other cold like symptoms. No treatments were initiated in the home for the irritated eye. ISIDORO LOZANO NP [address], [place], [address], [place] - [facility] 04/17/2019 16:42:53 08/14/2019 text/html This is a 24-year-old male that is known to [facility] and this provider. He has a medical history significant for autism and behavioral issues. [facility] was contacted to come evaluate a wound on his left lower extremity. Staff noted the area yesterday but they do not know how he injured himself. The patient cannot tell me either. They have been keeping the area clean, applying a topical [id number] antibiotic and a Band-Aid. ISIDORO LOZANO NP [address] [place] [address], [id number], [place] [facility] 08/14/2019 21:32:06
[2024-04-08 11:20] LABS: MANUAL DIFF FLAG NO
[2024-04-08 11:28] LABS: Basophils Percent Auto 0.7 % (0-2); Eosinophils Absolute Auto 0.1 X10*3/uL (0.0-0.4); Eosinophils Percent Auto 1.2 % (0-4); Hematocrit 41.8 % (42.0-52.0); Hemoglobin 14.5 g/dl (14.0-18.0); Imm Gran Abs Auto 0.05 X10*3/uL (0.00-0.03); Imm Gran Pct Auto 0.9 % (0.0-0.4); Lymphocytes Absolute Auto 1.7 X10*3/uL (1.2-4.9); Lymphocytes Percent Auto 28.8 % (20-40); Mean Corpuscular HGB Conc 34.7 g/dl (31.0-36.0); Mean Corpuscular Hemoglobin 30.3 pg (27.0-33.0); Mean Corpuscular Volume 87.3 fL (80.0-98.0); Mean Platelet Volume 10.3 fL (9.4-12.4); Monocytes Absolute Auto 0.6 X10*3/uL (0.1-1.2); Monocytes Percent Auto 9.5 % (2-11); Neutrophils Absolute Auto 3.4 x10*3/uL (2.0-8.3); Neutrophils Percent Auto 58.9 % (45-73); Platelet Count 217 X10*3/uL (160-400); Red Blood Count 4.79 X10*6/uL (4.60-5.80); Red Cell Distribution Width 11.7 % (11.0-16.0); White Blood Count 5.8 X10*3/uL (4.8-10.8)
[2024-04-08 11:38] LABS: Appearance Urine Cloudy; Color Urine Dark Yellow; Glucose Urine UA Negative (Negative); Leukocyte Esterase Urine Negative (Negative); Nitrite Urine Negative (Negative); PH 5.5 (5.0-9.0); Specific Gravity - Urine 1.025 (1.005-1.025); Urine Blood Negative (Negative); Urine Ketones Trace mg/dL (Negative); Urine Protein Negative (Neg-Trace)
[2024-04-08 11:55] LABS: Alanine Aminotransferase 26 U/L (0-40); Albumin Level 4.4 g/dL (3.5-5.0); Alkaline Phosphatase 52 U/L (39-117); Anion Gap 14 (12-20); Aspartate Amino Transferase 23 U/L (5-37); Bilirubin Total 0.3 mg/dL (0.0-1.0); Blood Urea Nitrogen 10 mg/dL (9-16); Calcium 9.4 mg/dL (8.4-10.2); Carbon Dioxide 23 mmol/L (22-29); Chloride 107 mmol/L (96-108); Estimated Glomerular Filt Rate > 60; Glucose Fasting 79 mg/dL (60-99); Potassium 4.2 mmol/L (3.3-5.1); Sodium 140 mmol/L (135-145); Total Protein 7.8 g/dL (6.5-8.0)
[2024-04-08 11:56] LABS: TSH reflex Free T4 1.28 uIU/mL (0.32-4.0)
== END 2024-04-08 08:29 | disposition home or self-care (01) ==
LOC: HO.HMGCLDS 08:28
PROVIDERS: PCP Nurse Practitioner Family; Visit Provider Nurse Practitioner Family
DX: Z00.00 Encounter for general adult medical examination without abnormal findings (principal)
CPT/HCPCS: 36415; 80053; 81003; 84443; 85025

== ENCOUNTER 2024-05-26 10:10 | Outpatient (REF) | payer OTHER, MEDICAID, SELFPAY | END 2024-05-26 10:11 | disposition home or self-care (01) | LOC: HO.SH 10:10 | PROVIDERS: Visit Provider Nurse Practitioner Family | DX: Z01.118 Encounter for examination of ears and hearing with other abnormal findings (principal); H93.293 Other abnormal auditory perceptions, bilateral | CPT/HCPCS: 92552; 92555; 92588 ==

== ENCOUNTER 2024-09-01 11:32 | Outpatient (AMB) | payer OTHER, MEDICAID, SELFPAY ==
[2024-09-01 11:49] VITALS: BP 118/82; PULSE 92; TEMP 36.9; O2SAT 96; BMI 33.1
--- NOTE | 2024-09-01 11:49 | MHC.OFFWIV ---
Intake Vital Signs 09/01/24 11:49 Height 5 ft 10 in Weight 230 lb 6 oz BMI 33.1 BP 118/82 Blood Pressure Location Lt brachial Position Sitting Pulse 92 Pulse Source Pulse Oximeter Temp 98.4 F Temp Source Oral Pulse Oximetry (%) 96 Oxygen Delivery Method Room Air Intake Visit Reasons: EP Wound infection? Patient Tobacco Use Status: Never used Tobacco Afloat Cryptologic Manager Required: No Allergies quetiapine (Seroquel) Allergy (Unknown, Verified 09/01/24 11:54) rash Sulfa (Sulfonamide Antibiotics) Allergy (Unknown, Verified 09/01/24 11:54) Unknown Benadryl Allergy (Unknown, Uncoded 01/26/23 10:44) unknown Do you need a note to return to daycare/school/sports/work: No HPI HPI Comments History of Present Illness Details This is a 29 year old man presenting with his longterm staff for evaluation of redness on his left lower extremity that has been worsening over the past 2-3 days. Patient will chronically pick at his skin and has multiple lesions on his extremities. There is no report of any fevers or chills but staff noticed redness surrounding 1 of these lesions on his distal left lower extremity. Patient denies having any pain at this time. [facility] Medical History Obesity Poor nutrition Autism Surgical History H/O tooth extraction Family History Father No problems noted. Mother Migraine Social History Housing: Assisted Living Facility Alcohol intake: never Patient Tobacco Use Status: Never used Tobacco e-Cigarette/Vaping Use: Never Used Second Hand Smoke Exposure: No Current occupational status: disabled Cognitive needs: Yes Hearing needs: No Vision needs: No Review of Systems Const All systems reviewed & are unremarkable except as noted in HPI and below Reports no additional complaints, Denies body aches, Denies chills and Denies fever(s) Musc Reports no additional complaints Skin/Breast Reports as per HPI, Reports changing lesions, Reports lesions, Reports non-healing lesions and Reports erythema Physical Exam Const Other: Patient is afebrile and in no acute distress. General: cooperative, healthy appearing, comfortable, no acute distress, well developed, alert, awake and Physically active Nutritional Appearance: well nourished Orientation/consciousness: oriented to person and oriented to place Limitations: other limitations (Autism, mild cognitive delay) Skin Other: there is a 2 cm ulceration of the dermis overlying the mid shaft of the left tibia with 1.5 cm of surrounding macular erythema that is warm and tender to touch; there are multiple other areas of hyperpigmentation at sites in his left lower extremity Neuro General: oriented to person and oriented to place Extrem Other: patient ambulating independently without limitation Assessment & Plan Assessment & Plan (1) Cellulitis of left leg: Comment: The patient's examination is significant for a cellulitis secondary to skin picking. Patient will be discharged home with Keflex. Code(s): L03.116 - Cellulitis of left lower limb Plan: Keflex 500 mg t.i.d. x7 days. Follow up only as needed. Medications: New cephalexin 500 mg PO Q8H 21 caps 0RF Coding Level of Care Code Est Pt Level 3 (48180) Diagnoses Cellulitis of left leg L03.116 Time Spent (min) 20
--- OUTSIDE RECORDS SUMMARY | 2024-09-01 12:01 | XMS_ITS | Data Portability ---
Author Organization [place] - [facility] Address [address] [place] [address] Care Team Providers Care Mobile Qa Tester Name Role Phone BERNY SARMIENTO Primary Care Provider Assessment Encounter Date Assessment Date Assessment LastModified by Organization Details LastModified Time 04/17/2019 04/17/2019 Overview/History :T is a 24-year-old male that is new to [facility] and this provider. He has a history of behavioral disturbance and autism. [facility] was contacted for concerns of irritation of [...] discussed the possibility of seasonal allergies with senior living staff, though he has no history of allergies in the past. skilled nursing staff verbalized understanding of discharge instructions and what conditions they should contact his PCP for. [email or web address] Not available 04/17/2019 16:42:47 08/14/2019 08/14/2019 Overview/History :[age]-year-old male with medical history significant for autism and behavioral disturbances. [facility] was contacted to evaluate him as he was found to have a wound on his left lower extremity. Staff at the senior living did not know exactly when this occurred or how it occurred but noted that yesterday. They have been keeping the area clean and applying topical antibiotic and a Band-Aid. They wanted [facility] to evaluate and ensure that he [...] stable so no concern for sepsis. Work up/Results:Yadi l exam in wound care provided. Plan/Discussion:I discussed with senior living staff that the wound appears to be mildly infected but I think it is appropriate to continue with topical antibiotics. I have given him a prescription for mupirocin to cover for MRSA. I instructed them to clean the area twice a day and to apply mupirocin ointment and a nonadhesive bandage. We reviewed signs of worsening infection, if this occurs they should contact [facility] for reevaluation. In order to obtain further information and compare any laboratory results/values, I have accessed old patient records. This information was pertinent in my medical decision making today. [email or web address] Not available 08/14/2019 21:32:01 Plan of Treatment Reminders Order Date Submit Date Provider Last Modified By Organization Details Last Modified Time Details Appointments None recorded. Lab None recorded. Referral None recorded. Procedures None recorded. Surgeries None recorded. Imaging None recorded. Medication Orders mupirocin 2 % topical ointment [email or web address] [facility], [address] [place] [address], [address], [place], [address], 0 15:32:46 Artificial Tears (glycerin- peg) 1 %-0.3 % eye drops 2019 020 INTERFACE [id number], [address] [place], [address], 0 16:23:31 Patient TargetsNo targets recorded. Patient Instructions Encounter Date Encounter Id Patient Instructions Last Modified By Organization Details Last Modified Time 04/17/2019 [id number] WE CAME OUT TODA Y TO EVALUATE [...] TIME. Thank you for your visit with [facility] today. We cannot always find the exact [...] in your condition between 8am-10pm, please call [facility] at [phone] to help navigate your care. [email or web address] Not available 04/17/2019 16:19:14 Reason for Referral [...] Respiratory rate Heart rate Body temperature Systolic And Diastolic Provider Name and Address Organization Details Last Updated DateTime 0 98 % 98 % 18 /min 68 /min 98.7 [degF] 122/70 mm[Hg] Not Available [facility] 0 16:20:26 Date Recorded Heart rate Oxygen saturation Oxygen saturation in Arterial blood by Pulse oximetry Body temperature Respiratory rate Systolic And Diastolic Provider Name and Address Organization Details Last Updated DateTime 0 90 /min 98 % 98 % 97 [degF] 20 /min 138/64 mm[Hg] Not Available [facility] 0 19:46:22 Social History None recorded. Functional Status None recorded. Mental Status None recorded. Family History Nothing Reported Notes:pt is unaware of his f amily hx Medical History Condition Response Coronary Artery Disease N COPD N Depression N Diabetes N Cancer N Stroke N Asthma N High Cholesterol N Pulmonary Embolism N Hypertension N Kidney Disease N Past Encounters Encounter ID Performer Location Encounter Start Date Encounter Closed Date Diagnosis/Indication Diagnosis SNOMED-CT Code Diagnosis ICD10 Code Diagnosis Note [id number] ISIDORO LOZANO NP [facility] [address] [place] [address] 04/17/2019 16:05:17 04/18/2019 10:31:47 Sensation of irritation of eye proper 364376007 H57.89 [id number] ISIDORO LOZANO NP [facility] [address] [place] [address] 08/14/2019 19:43:39 08/15/2019 18:51:47 Open wound of lower leg 815553850 S81.802A Health Concerns Section Related Observation LastModified by Organization Detai ls LastModified Time None Recorded Concern Status LastModified by Organization Details LastModified Time None Recorded Advance Directives Directive None Recorded Payers Insurance Date Sequence Insurance Name Policy Number Policy Vidal Covered Member ID Vidal Member ID Guarantor Name 09/08/2019 1 [employer]UE [employer] [facility] [place] ([id number] John Soni [id number] John Soni 04/16/2019 1 *SELF PAY* John [place] [id number] John Leeey 09/08/2019 2 [place] [facility] [place] [id number] John Leeey Notes Date Note Type Note Provider Name and Address Organization Details Recorded Time 04/17/2019 text/html Adrian is a 24-year-old male that is new to [facility] provider. He lives in a senior living and has a history of autism and behavioral disturbance. skilled nursing staff contact [facility] because he came home from an outing with her father last night and had redness and irritation to his right eye. They report this looked improved this morning. When I speaking to John he told me that he felt that he will be all better now. skilled nursing staff denied fevers, chills or any other cold like symptoms. No treatments were initiated in the home for the irritated eye. ISIDORO LOZANO NP [address] [place], [address], [place] - [facility] 04/17/2019 16:42:53 08/14/2019 text/html This is a 24-year-old male that [facility]. He has a medical history significant for autism and behavioral issues. [facility] come evaluate a wound on his left lower extremity. Staff noted the area yesterday but they do not know how he injured himself. The patient cannot tell me either. They have been keeping the area clean, applying a topical [id number] antibiotic and a Band-Aid. ISIDORO LOZANO NP [address] [place] [address], [address], [place] [facility] 08/14/2019 21:32:06
== END 2024-09-01 12:37 | disposition home or self-care (01) ==
PROVIDERS: PCP Nurse Practitioner Family; Visit Provider Physician Assistant
DX: L03.116 Cellulitis of left lower limb (principal)

== ENCOUNTER 2025-02-14 12:03 | Outpatient (AMB) | payer OTHER, MEDICAID, SELFPAY ==
--- OUTSIDE RECORDS SUMMARY | 2025-02-14 12:07 | XMS_ITS | Data Portability ---
Author Organization [place] - [facility] Address [address] [place] [address] Care Team Providers Care Group Home Paraprofessional Name Role Phone BERNY SARMIENTO Primary Care Provider Assessment Encounter Date Assessment Date Assessment LastModified by Organization Details LastModified Time 04/17/2019 04/17/2019 Overview/History :T is a 24-year-old male that is new to [facility] and this provider. He has a history of behavioral disturbance and autism. [facility] was contacted for concerns of irritation of [...] discussed the possibility of seasonal allergies with prison staff, though he has no history of allergies in the past. halfway staff verbalized understanding of discharge instructions and what conditions they should contact his PCP for. Not available 04/17/2019 16:42:47 08/14/2019 08/14/2019 Overview/History :[age]-year-old male with medical history significant for autism and behavioral disturbances. [facility] was contacted to evaluate him as he was found to have a wound on his left lower extremity. Staff at the prison did not know exactly when this occurred or how it occurred but noted that yesterday. They have been keeping the area clean and applying topical antibiotic and a Band-Aid. They wanted [facility] to evaluate and ensure that he [...] in wound care provided. Plan/Discussion:I discussed with prison staff that the wound appears to be mildly infected but I think it is appropriate to continue with topical antibiotics. I have given him a prescription for mupirocin to cover for MRSA. I instructed them to clean the area twice a day and to apply mupirocin ointment and a nonadhesive bandage. We reviewed signs of worsening infection, if this occurs they should contact [facility] for reevaluation. In order to obtain further information and compare any laboratory results/values, I have accessed old patient records. This information was pertinent in my medical decision making today. [email or web address] Not available 08/14/2019 21:32:01 Plan of Treatment Reminders Order Date Submit Date Provider Last Modified By Organization Details Last Modified Time Details Appointments None recorded. Lab None recorded. Referral None recorded. Procedures None recorded. Surgeries None recorded. Imaging None recorded. Medication Orders mupirocin 2 % topical ointment 2019 020 [email or web address] [facility], [address] [place] [address], [address], [place], [address], 0 15:32:46 Artificial Tears (glycerin- peg) 1 %-0.3 % eye drops 2019 020 INTERFACE [id number], [address] [place], [address], 0 16:23:31 Patient TargetsNo targets recorded. Patient Instructions Encounter Date Encounter Id Patient Instructions Last Modified By Organization Details Last Modified Time 04/17/2019 [id number] WE CAME OUT TODA Y TO EVALUATE [...] TIME. [facility]. We cannot always find the exact [...] in your condition between 8am-10pm, please call [facility] at [phone] to help navigate your care. [email or web address] Not available 04/17/2019 16:19:14 Reason for Referral [...] t Available Vitals Date Recorded Oxygen saturation Respiratory rate Heart rate Body temperature Systolic And Diastolic Provider Name and Address Organization Details Last Updated DateTime 0 98 % 18 /min 68 /min 98.7 [degF] 122/70 mm[Hg] Not Available [facility] 0 16:20:26 Date Recorded Heart rate Oxygen saturation Body temperature Respiratory rate Systolic And Diastolic Provider Name and Address Organization Details Last Updated DateTime 0 90 /min 98 % 97 [degF] 20 /min 138/64 mm[Hg] Not Available [facility] 0 19:46:22 Social History None recorded. Functional Status None recorded. Mental Status None recorded. Family History Nothing Reported Notes:pt is unaware of his f amily hx Medical History Condition Response Diabetes N Coronary Artery Disease N High Cholesterol N Pulmonary Embolism N Cancer N Hypertension N Stroke N Asthma N COPD N Depression N Kidney Disease N Past Encounters Encounter ID Performer Location Encounter Start Date Encounter Closed Date Diagnosis/Indication Diagnosis SNOMED-CT Code Diagnosis ICD10 Code Diagnosis IMO Codes Diagnosis Note [id number] ISIDORO LOZANO NP [facility] [address] [place] [address] 04/17/2019 16:05:17 04/18/2019 10:31:47 Sensation of irritation of eye proper [id number] H57.89 [id number] ISIDORO LOZANO NP [facility] [address] [place] [address] 08/14/2019 19:43:39 08/15/2019 18:51:47 Open wound of lower leg [id number] S81.802A Health Concerns Section Related Observation LastModified by Organization Detai ls LastModified Time None Recorded Concern Status LastModified by Organization Details LastModified Time None Recorded Advance Directives Directive None Recorded Payers Insurance Date Sequence Insurance Name Policy Number Policy Vidal Covered Member ID Vidal Member ID Guarantor Name 09/08/2019 1 BLUE B[employer]EFIT [employer]MIN[employer]RATORS [facility] ([id number] John Leeey [id number] John Leeey 04/16/2019 1 *SELF PAY* John Soni [id number] John Leeey 09/08/2019 2 [place]: [facility] [place] [id number] John Leeey Notes Date Note Type Note Provider Name and Address Organization Details Recorded Time 04/17/2019 text/html General HPI Template - DHReported by Patient Adrian is a 24-year-old male that is new to [facility] provider. He lives in a prison and has a history of autism and behavioral disturbance. halfway staff contact [facility] because he came home from an outing with her father last night and had redness and irritation to his right eye. They report this looked improved this morning. When I speaking to John he told me that he felt that he will be all better now. halfway staff denied fevers, chills or any other cold like symptoms. No treatments were initiated in the home for the irritated eye. ISIDORO LOZANO NP [address] [place], [address], [place] - [facility] of [facility] 04/17/2019 16:42:53 08/14/2019 text/html This is a 24-year-old male that is known to [facility] and this provider. He has a medical history significant for autism and behavioral issues. [facility] was contacted to come evaluate a wound on his left lower extremity. Staff noted the area yesterday but they do not know how he injured himself. The patient cannot tell me either. They have been keeping the area clean, applying a topical vbks-mbz-fhaqamn antibiotic and a Band-Aid. ISIDORO LOZANO NP [address] [place] [address], [address], [place] [facility] 08/14/2019 21:32:06
[2025-02-14 12:09] VITALS: BP 110/68; PULSE 100; RESP 16; O2SAT 96; BMI 33.1
--- NOTE | 2025-02-14 12:09 | A.OFFPC_ITS ---
Vital Signs 02/14/25 12:09 Height 5 ft 10 in Weight 231 lb BMI 33.1 BP 110/68 Blood Pressure Location Lt brachial Position Sitting Respiration 16 Pulse 100 Pulse Source Pulse Oximeter Pulse Oximetry (%) 96 Oxygen Delivery Method Room Air Intake Visit Reasons: Annual PE Adult Parole Officer Required: No Accompanied by: Self / Same As Patient Allergies quetiapine (Seroquel) Allergy (Unknown, Verified 02/14/25 12:52) rash Sulfa (Sulfonamide Antibiotics) Allergy (Unknown, Verified 02/14/25 12:52) Unknown Benadryl Allergy (Unknown, Uncoded 02/14/25 12:52) unknown Medication List - Last Reconciled 02/14/25 by FOX Darnell-ERIKA acetaminophen ER (Tylenol 8 Hour) 650 mg PO Q8H 30 days betamethasone dipropionate 0.05% 1 appl topical BID clonazepam mg PO divalproex 250 mg PO DAILY escitalopram oxalate 20 mg PO DAILY lorazepam 0.5 mg PO BID PRN multivitamin with folic acid 400 mcg (Tab-A-Kandi) 1 tab PO DAILY risperidone 3 mg PO .morning risperidone 2 mg PO BEDTIME risperidone 0.5 mg PO DAILY Tobacco use date assessed: 02/14/25 Dental Screening Dental Screen Date: 02/14/25 Did you have a dental visit in the last 12 months?: Yes Did you have a dental problem in the last 6 months where you did not have access to dental care?: No Was dental information given to patient?: Patient has dentist HPI Annual PE HPI Details History of Present Illness The patient is a 29 year old male presenting for a physical exam. He has a history of severe autism. He is verbal and able to respond to simple questions and commands. Health Maintenance - The patient will receive an influenza vaccination today. - The patient will receive a Tdap vaccin ation at a different location. - Orders were placed for fasting labs to be completed in the near future. - Follow-up scheduled in 6 months -has a psych provider Social History - Developmental: The patient has severe autism. - Functional Status: He is verbal and re sponds to simple questions and commands. - Support System: He was accompanied by a staff member to the visit. Review of Systems denies any cp, sob, abd pain, n/v, fevers/chills, constipation or diarrhea Physical Exam General: Cooperative, healthy appearing, comfortable, no acute distress and well developed Orientation: Patient oriented x3 Limitations: Severe autism, verbal, responds to simple questions and commands Head: Normal to inspection Ears: Hearing grossly normal bilaterally Nose: Normal external nose present Face and sinus: Normal facial exam Eyes: Appearance normal, both eyes and all related structures Neck: Normal visual inspection and Yes full ROM Respiratory: Normal respiratory effort and able to speak in complete sentences. Clear to auscultation bilaterally Cardiovascular: Regular rate and rhythm. Normal S1 and S2 GI: Normal to inspection. Soft to palpation and nontender : testicles without masses/lesions and no hernias appreciated Skin: No rashes or lesions noted Neuro: Patient oriented x3 Extremities: Normal to inspection Results Plan 1. Annual Physical Examination The patient presents for a routine physical examination. An influenza vaccination will be administered during this visit, and he will receive a Tdap vaccination elsewhere. Fasting labs will be obtained in the near future. Follow- up is scheduled for one year. 2. Autistic Disorder The patient has a history of severe autism and is doing well. He is verbal and responds to simple commands. Continue current supportive care. Discussion Notes I saw the patient for a physical exam. We discussed that he will receive his flu vaccination today and a Tdap vaccination at another facility. I have ordered fasting labs for him to complete in the near future and will have him follow up in one year. Patient Instructions - You will get your flu shot today in [facility] office. - Please make sure to get your Tdap shot at another location. - You need to get blood work done soon. Please do not eat or drink anything except water for 8-12 hours before the blood draw. - [facility] Medical History Obesity Poor nutrition Autism Surgical History H/O tooth extraction Family History Father No problems noted. Mother Migraine Social History Housing: Assisted Living Facility Alcohol intake: never Patient Tobacco Use Status: Never used Tobacco e-Cigarette/Vaping Use: Never Used Second Hand Smoke Exposure: No Current occupational status: disabled Cognitive needs: Yes Hearing needs: No Vision needs: No Questionnaire PHQ-9 Over the last 2 weeks, how often have you been bothered by any of the following problems? 1. Little interest or pleasure in doing things: not at all 2. Feeling down, depressed, or hopeless: not at all 3. Trouble falling or staying asleep, or sleeping too much: not at all 4. Feeling tired or having little energy: not at all 5. Poor appetite or overeating: not at all 6. Feeling bad about yourself - or that you are a failure or have let yourself or your family down: not at all 7. Trouble concentrating on things, such as reading the newspaper or watching television: not at all 8. Moving or speaking so slowly that other people could have noticed. Or the opposite - being so fidgety or restless that you have been moving around a lot more than usual: not at all 9. Thoughts that you would be better off or of hurting yourself in some way: not at all Total score: 0 Depression Screening Interpretation: Negative Depression Screening Done: Yes 86215 - PHQ-9 Billing: Yes Source: Developed by Drs. Giovanni Rubio, Karen Chery, Stew Thorne and colleagues, with an educational susan from [employer]. Thrive Questionnaire Date Thrive assessed: 02/10/24 I am a: Parent/Caregiver What is your living situation today?: I have a steady place to live Within the past 12 months, did the food you bought not last and you didn't have the money to get more?: I choose not to answer this question Within the past 12 months, did you worry whether your food would run out before you got money to buy more?: I choose not to answer this question Do you have trouble paying for medicines?: No Do you have trouble getting transportation to medical appointments?: No Do you have trouble paying your heating and electricity bill?: No Do you have trouble taking care of your child, family member or friend?: No Do you have trouble with day-to-day activities such as bathing, preparing meals, shopping, managing finances, etc.?: No Are you currently unemployed and looking for a job?: No Are you interested in more education?: No Please select the resources that you would like help with: None Currently or been in a relationship where the following occur: No concerns reported THRIVE Score: 0 AUDIT C Alcohol Use Questionnaire (AUDIT-C) 1. How often do you have a drink containing alcohol?: Never 3. How often do you have six or more drinks on one occasion?: Never Total Score: 0 BRAXTON-7 AMB Questionnaire BRAXTON-7 Date BRAXTON - 7 assessed: 02/10/24 Feeling nervous, anxious, or on edge: 0 = Not at all Not being able to stop or control worryin = Not at all Worrying too much about different things: 0 = Not at all Trouble relaxin = Not at all Being so restless that it is hard to sit still: 0 = Not at all Becoming easily annoyed or irritable: 0 = Not at all Feeling afraid as if something awful might happen: 0 = Not at all Total BRAXTON-7 score (0-4 normal; 5-9 mild; 10-14 moderate; 15-21 severe): 0 Source: Developed by Drs. Giovanni Rubio, Karen Chery, Stew Thorne and colleagues, with an educational susan from [employer]. BRAXTON-7 Assessment Billing BRAXTON-7 Assessment Tool: BRAXTON-7 Assessment 45636 Physical exam (Primary Care) Vital Signs: Last Vital Signs Pulse 100 02/14/25 12:09 Resp 16 02/14/25 12:09 BP 110/68 02/14/25 12:09 Pulse Ox 96 02/14/25 12:09 Oxygen Delivery Method Room Air 02/14/25 12:09 BMI result Body Mass Index 33.1 Tobacco/Smoking Status: Tobacco use Status Tobacco use date assessed 02/14/25 02/14/25 12:16 Patient Tobacco Use Status Never used Tobacco 02/14/25 12:11 e-Cigarette/Vaping Use Never Used 02/14/25 12:11 PHQ-9: PHQ-9 Score PHQ-9: Total score 0 02/14/25 12:16 Depression Screening Interpretation: Negative Thrive Assessment: Date of Thrive Assessment Date Thrive assessed 02/10/24 02/14/25 12:11 Currently or been in a relationship where the following occur: No concerns reported Office Procedures Flu Questionnaire Does the patient have a severe egg allergy?: No Does the patient have severe life threatening allergies?: No Does the patient have a fever or illness today?: No Has the patient ever had Guillain-Alderson Syndrome?: No Has the patient ever had any past reaction to a flu shot?: No Immunizations Fluarix [id number] (PF) 45 mcg (15 mcg x 3)/0.5 mL IM syringe Performing Provider: NOEL Darnell Performing Location: [facility] Administered by: Hortensia Jc MA on 02/14/25 12:51 Dose Route Admin Location Dispensed Lot Number Expiration Date NDC Mine Administrator Supervisor 0.5 mL IM Left Deltoid 0.5 mL [id number] 08/21/25 [id number] [employer] VIS Given Date VIS Provided VIS Publication Date 02/14/25 Single Vaccine 24 Eligibility Eligibility Date Funding Source Not [facility] Eligible 02/14/25 Private Coding Level of Care Code Est Pt Prev Care 18-39y(28128) Diagnoses Autism F84.0 Physical exam Z00.00 Additional Codes PHQ-9 - 81661 - PHQ-9 Billing: Yes ([id number]) BRAXTON-7 Assessment Billing - BRAXTON-7 Assessment Tool: BRAXTON-7 Assessment 42307 ([id number]) Assessment & Plan Assessment & Plan (1) Autism: Code(s): F84.0 - Autistic disorder Category: Medical (2) Physical exam: Code(s): Z00.00 - Encounter for general adult medical examination without abnormal findings Category: Medical Plan . Orders: Orders Influenza [id number] Immunization Today Z23 - Encounter for immunization Complete Blood Count Auto Diff Today Z00.00 - Encounter for general adult medical examination without abnormal findings TSH reflex Free T4 Today Z00.00 - Encounter for general adult medical examination without abnormal findings UA CC w/rflx Micro + Cult Today Z00.00 - Encounter for general adult medical examination without abnormal findings Valproate Today F84.0 - Autistic disorder Comprehensive [place]. Panel Fast Today Z00.00 - Encounter for general adult medical examination without abnormal findings Lipid Panel Today Z00.00 - Encounter for general adult medical examination without abnormal findings
== END 2025-02-14 13:20 | disposition home or self-care (01) ==
LOC: HO.HMCC 12:04
PROVIDERS: PCP Nurse Practitioner Family; Visit Provider Nurse Practitioner Family
DX: F84.0 Autistic disorder (principal); Z00.00 Encounter for general adult medical examination without abnormal findings; Z23 Encounter for immunization

== ENCOUNTER → 2025-02-14 12:03 | Outpatient (BNVA) | payer OTHER, MEDICAID, SELFPAY | PROVIDERS: PCP Nurse Practitioner Family; Visit Provider Nurse Practitioner Family | DX: Z00.00 Encounter for general adult medical examination without abnormal findings (principal); Z23 Encounter for immunization; F84.0 Autistic disorder | CPT/HCPCS: 90471; 90656; 96127 ==

== ENCOUNTER 2025-02-19 08:50 | Outpatient (REF) | payer OTHER, MEDICAID, SELFPAY ==
[2025-02-19 10:29] LABS: Appearance Urine Clear; Glucose Urine UA Negative (Negative); PH 7.0 (5.0-9.0); Specific Gravity - Urine 1.025 (1.005-1.025)
[2025-02-19 10:36] LABS: MANUAL DIFF FLAG NO
[2025-02-19 10:42] LABS: Hematocrit 40.3 % (42.0-52.0); Hemoglobin 13.6 g/dl (14.0-18.0); Imm Gran Abs Auto 0.03 X10*3/uL (0.00-0.03); Imm Gran Pct Auto 0.5 % (0.0-0.4); Lymphocytes Absolute Auto 1.6 X10*3/uL (1.2-4.9); Mean Corpuscular HGB Conc 33.7 g/dl (31.0-36.0); Mean Corpuscular Hemoglobin 29.6 pg (27.0-33.0); Mean Corpuscular Volume 87.8 fL (80.0-98.0); NRBC Abs Auto 0.000 X10*3/uL (0.0-0.012); NRBC Pct Auto 0.0 /100WBC (0.0-0.2); Platelet Count 185 X10*3/uL (160-400); Red Blood Count 4.59 X10*6/uL (4.60-5.80); White Blood Count 6.0 X10*3/uL (4.8-10.8)
[2025-02-19 11:15] LABS: Alanine Aminotransferase 22 U/L (0-40); Albumin Level 4.5 g/dL (3.5-5.0); Alkaline Phosphatase 52 U/L (39-117); Anion Gap 11 (12-20); Aspartate Amino Transferase 21 U/L (5-37); Blood Urea Nitrogen 11 mg/dL (9-16); Calcium 9.0 mg/dL (8.4-10.2); Carbon Dioxide 27 mmol/L (22-29); Chloride 106 mmol/L (96-108); Cholesterol 175 mg/dL (<200); Estimated Glomerular Filt Rate > 60; HDL Cholesterol 30 mg/dL (>40); Potassium 4.3 mmol/L (3.3-5.1); Sodium 140 mmol/L (135-145); Total Protein 7.3 g/dL (6.5-8.0); Triglycerides 194 mg/dL (<150)
== END 2025-02-19 08:51 | disposition home or self-care (01) ==
LOC: HO.HMGCLDS 08:50
PROVIDERS: PCP Nurse Practitioner Family; Visit Provider Nurse Practitioner Family
DX: Z00.00 Encounter for general adult medical examination without abnormal findings (principal); F84.0 Autistic disorder; Z13.29 Encounter for screening for other suspected endocrine disorder; Z13.6 Encounter for screening for cardiovascular disorders
CPT/HCPCS: 36415; 80053; 80061; 80164; 81003; 84443; 85025